=== PATIENT | male | born 1955 | race Caucasian/White ===

== ENCOUNTER 2023-08-03 21:28 | Inpatient (IN) | payer OTHER, MEDICAID ==
[~2023-08-03] VITALS: Ht 167.6 cm; Wt 79.4 kg
[2023-08-03 21:50] VITALS: BP 140/82; PULSE 81; RESP 16; TEMP 98.3; O2SAT 94
[2023-08-03] MEDS ORDERED: cefTRIAXone 1,000 MG in DEXT 5% MINI-BAG PLUS 50 ML IV ONE (22:20)
[2023-08-03] MEDS ORDERED: cefTRIAXone 1,000 MG VIAL ONE (22:33)
[2023-08-03 23:30] LABS: BASOPHILS # (AUTO) 0.1 K/uL (0.00-0.22); EOSINOPHILS # (AUTO) 0.4 K/uL (0-0.4); EOSINOPHILS % (AUTO) 2.8 % (0.0-4.0); HEMATOCRIT 33.2 % (36-52); LYMPHOCYTES # (AUTO) 0.9 K/uL (2.0-11.5); LYMPHOCYTES % (AUTO) 6.2 % (20.5-51.1); MEAN CORPUSCULAR HEMOGLOBIN 28 pg (27-31); MEAN CORPUSCULAR HGB CONC 33 g/dL (33-37); MEAN CORPUSCULAR VOLUME 84.4 fL (80-94); MONOCYTES % (AUTO) 7.3 % (1.7-9.3); NEUTROPHILS # (AUTO) 11.4 K/uL (1.8-7.7); NEUTROPHILS % (AUTO) 82.7 % (42.2-75.2); PLATELET COUNT (AUTO) 336 K/uL (140-450); RED BLOOD CELL COUNT(AUTO) 3.94 MIL/uL (4.20-6.10); WHITE BLOOD COUNT (AUTO) 13.8 K/uL (4.8-10.8)
[2023-08-03 23:58] LABS: LACTIC ACID 0.7 mmol/L (0.4-2.0)
[2023-08-04 01:04] LABS: ANION GAP 17.6 (8-16); CALCIUM 8.4 mg/dL (8.5-10.1); CREATININE 3.7 mg/dL (0.6-1.3); POTASSIUM 4.6 mmol/L (3.5-5.1)
[2023-08-04] MEDS ORDERED: ACETAMINOPHEN 325 MG TAB PO PRN (01:30)
[2023-08-04] MEDS ORDERED: MORPHINE SULFATE 2 MG/ML SYR IVP PRN (01:30)
[2023-08-04] MEDS ORDERED: guaiFENesin 20 MG/ML UDC PO ONE (01:30)
[2023-08-04] MEDS ORDERED: MAGNESIUM HYDROXIDE 2400 MG/30 ML UDC PO ONE (01:30)
[2023-08-04] MEDS ORDERED: HYDROcodone/APAP 5/325 MG 1 TAB TAB PO ONE (01:30)
[2023-08-04] MEDS ORDERED: CLONIDINE HYDROCHLORIDE 0.1 MG TAB PO PRN (01:40)
[2023-08-04] MEDS ORDERED: methylPREDNISolone SS 40 MG in WATER STERILE 1 ML IV SCH (05:00)
[2023-08-04] MEDS ORDERED: CARV12.5 PO (06:28)
[2023-08-04] MEDS ORDERED: ISOS20TA13 PO (06:28)
[2023-08-04] MEDS ORDERED: ESCI5TAB PO (06:28)
[2023-08-04] MEDS ORDERED: HYDR-734 PO (06:28)
[2023-08-04] MEDS ORDERED: FAMO-90 PO (06:28)
[2023-08-04] MEDS ORDERED: AMLO5TAB PO (06:28)
[2023-08-04] MEDS ORDERED: GABA300C PO (06:28)
[2023-08-04] MEDS ORDERED: ATOR40TA PO (06:28)
[2023-08-04] MEDS ORDERED: ALBUTEROL SULFATE/IPRATROPIU 3 ML SOL IH SCH (07:00)
[2023-08-04 07:58] LABS: FLU A ANTIGEN negative (NEGATIVE); FLU B ANTIGEN negative (NEGATIVE)
[2023-08-04 08:23] VITALS: PULSE 72; RESP 18; O2SAT 98
[2023-08-04] MEDS: AZITHROMYCIN 500 MG in DEXTROSE 5% 250 ML IV SCH (09:00)
[2023-08-04] MEDS ORDERED: AZITHROMYCIN 500 MG INJ VIAL IV ONE (09:08)
[2023-08-04] MEDS ORDERED: cefTRIAXone 1,000 MG VIAL ONE (09:08)
[2023-08-04] MEDS ORDERED: ALBUTEROL SULFATE/IPRATROPIU 3 ML SOL IH PRN (10:15)
[2023-08-04] MEDS: methylPREDNISolone SS 40 MG/ML VIAL IVP SCH ×2 (13:14→21:00)
[2023-08-04] MEDS: carvediloL 12.5 MG TAB PO SCH (21:00)
[2023-08-04] MEDS ORDERED: LORazepam 2 MG/ML VIAL IM/IVP PRN (23:30)
[2023-08-05] VITALS (10 sets, daily range): PULSE 63–65; RESP 16–19; O2SAT 95–97
[2023-08-05 02:46] LABS: BASOPHILS % (AUTO) 0.4 % (0.0-2.0); HEMATOCRIT 31.5 % (36-52); HEMOGLOBIN 10.7 g/dL (12.0-18.0); LYMPHOCYTES # (AUTO) 0.5 K/uL (2.0-11.5); LYMPHOCYTES % (AUTO) 6.7 % (20.5-51.1); MEAN CORPUSCULAR HEMOGLOBIN 29 pg (27-31); MEAN CORPUSCULAR HGB CONC 34 g/dL (33-37); MONOCYTES # (AUTO) 0.1 K/uL (0.8-1.0); MONOCYTES % (AUTO) 0.8 % (1.7-9.3); NEUTROPHILS # (AUTO) 6.4 K/uL (1.8-7.7); PLATELET COUNT (AUTO) 293 K/uL (140-450); RED BLOOD CELL COUNT(AUTO) 3.75 MIL/uL (4.20-6.10); RED CELL DISTRIBUTION WIDTH 14.3 % (11.6-13.7)
[2023-08-05 03:02] LABS: ANION GAP 20.6 (8-16); CALCIUM 9.1 mg/dL (8.5-10.1); CARBON DIOXIDE 17.6 mmol/L (21-32); CREATININE 3.9 mg/dL (0.6-1.3); POTASSIUM 5.2 mmol/L (3.5-5.1)
[2023-08-05 03:13] LABS: NEUTROPHILS % (AUTO) 92.1 % (42.2-75.2)
[2023-08-05] MEDS: methylPREDNISolone SS 40 MG/ML VIAL IVP SCH ×3 (05:18→22:08)
[2023-08-05] MEDS ORDERED: VANCOMYCIN PER PHARMACY MC PRN (06:10)
[2023-08-05] MEDS ORDERED: VANCOMYCIN 1GM/DEXT 5% PREMIX 200 ML IV ONE (07:00)
[2023-08-05 07:19] LABS: BASOPHILS % (AUTO) 0.2 % (0.0-2.0); HEMATOCRIT 28.9 % (36-52); HEMOGLOBIN 9.9 g/dL (12.0-18.0); LYMPHOCYTES # (AUTO) 0.6 K/uL (2.0-11.5); LYMPHOCYTES % (AUTO) 9.6 % (20.5-51.1); MEAN CORPUSCULAR HEMOGLOBIN 29 pg (27-31); MEAN CORPUSCULAR HGB CONC 34 g/dL (33-37); MEAN CORPUSCULAR VOLUME 83.6 fL (80-94); MONOCYTES # (AUTO) 0.1 K/uL (0.8-1.0); MONOCYTES % (AUTO) 1.6 % (1.7-9.3); NEUTROPHILS # (AUTO) 5.8 K/uL (1.8-7.7); NEUTROPHILS % (AUTO) 88.6 % (42.2-75.2); PLATELET COUNT (AUTO) 288 K/uL (140-450); RED BLOOD CELL COUNT(AUTO) 3.45 MIL/uL (4.20-6.10); RED CELL DISTRIBUTION WIDTH 14.5 % (11.6-13.7); WHITE BLOOD COUNT (AUTO) 6.6 K/uL (4.8-10.8)
[2023-08-05 07:26] LABS: PHOSPHORUS 4.8 mg/dL (2.5-4.9)
[2023-08-05 07:45] LABS: ALBUMIN 2.6 g/dL (3.4-5.0); ANION GAP 19.1 (8-16); CALCIUM 9.1 mg/dL (8.5-10.1); CARBON DIOXIDE 18.1 mmol/L (21-32); CREATININE 3.9 mg/dL (0.6-1.3); POTASSIUM 5.2 mmol/L (3.5-5.1); TOTAL BILIRUBIN 0.5 mg/dL (0.0-1.0); TOTAL PROTEIN, SERUM 6.7 g/dL (6.4-8.2)
[2023-08-05] MEDS ORDERED: VANCOMYCIN 1,000 MG VIAL ONE (08:23)
[2023-08-05] MEDS: AZITHROMYCIN 500 MG in DEXTROSE 5% 250 ML IV SCH (09:00)
[2023-08-05] MEDS: ISOSORBIDE DINITRATE 20 MG TAB PO SCH (09:00)
[2023-08-05] MEDS ORDERED: CLONIDINE HYDROCHLORIDE 0.1 MG TAB PO PRN (09:03)
[2023-08-05] MEDS: GABAPENTIN 300 MG CAP PO SCH (09:51)
[2023-08-05] MEDS: ATORVASTATIN 20 MG TAB PO SCH (09:51)
[2023-08-05] MEDS: amLODIPine 5 MG TAB PO SCH (09:53)
[2023-08-05] MEDS: ESCITALOPRAM 20 MG TAB PO SCH (09:53)
[2023-08-05] MEDS: carvediloL 12.5 MG TAB PO SCH ×2 (09:54→22:06)
[2023-08-05] MEDS: FAMOTIDINE 20 MG TAB PO SCH (09:54)
[2023-08-05] MEDS ORDERED: cefTRIAXone 1,000 MG VIAL ONE (10:06)
[2023-08-05] MEDS ORDERED: AZITHROMYCIN 500 MG INJ VIAL IV ONE (10:06)
[2023-08-05] MEDS: SODIUM BICARBONATE 8.4% 50 MEQ in NACL 0.45% 1,000 ML IV SCH (16:15)
[2023-08-05] MEDS ORDERED: SODIUM BICARBONATE 8.4% PFS 50 MEQ/50 ML SYR IVP ONE (18:21)
[2023-08-06] VITALS (11 sets, daily range): BP systolic 138–167; BP diastolic 58–80; PULSE 49–88; RESP 18–20; TEMP 97.1–98.7; O2SAT 96–98
[2023-08-06] MEDS: methylPREDNISolone SS 40 MG/ML VIAL IVP SCH ×3 (04:43→20:42)
[2023-08-06] MEDS: SODIUM BICARBONATE 8.4% 50 MEQ in NACL 0.45% 1,000 ML IV SCH ×2 (06:15→18:33)
[2023-08-06 07:32] LABS: ANION GAP 17.6 (8-16); CALCIUM 9.1 mg/dL (8.5-10.1); CARBON DIOXIDE 19.9 mmol/L (21-32); CREATININE 3.7 mg/dL (0.6-1.3); POTASSIUM 4.5 mmol/L (3.5-5.1)
[2023-08-06 07:42] LABS: BASOPHILS % (AUTO) 0.1 % (0.0-2.0); HEMATOCRIT 32.6 % (36-52); HEMOGLOBIN 11.1 g/dL (12.0-18.0); LYMPHOCYTES # (AUTO) 0.7 K/uL (2.0-11.5); LYMPHOCYTES % (AUTO) 5.9 % (20.5-51.1); MEAN CORPUSCULAR HEMOGLOBIN 29 pg (27-31); MEAN CORPUSCULAR HGB CONC 34 g/dL (33-37); MEAN CORPUSCULAR VOLUME 83.7 fL (80-94); MONOCYTES # (AUTO) 0.2 K/uL (0.8-1.0); MONOCYTES % (AUTO) 1.9 % (1.7-9.3); NEUTROPHILS % (AUTO) 92.1 % (42.2-75.2); PLATELET COUNT (AUTO) 332 K/uL (140-450); RED BLOOD CELL COUNT(AUTO) 3.89 MIL/uL (4.20-6.10); RED CELL DISTRIBUTION WIDTH 14.4 % (11.6-13.7)
[2023-08-06] MEDS: ATORVASTATIN 20 MG TAB PO SCH ×3 (08:50→12:39)
[2023-08-06] MEDS: FAMOTIDINE 20 MG TAB PO SCH ×3 (08:50→12:38)
[2023-08-06] MEDS: GABAPENTIN 300 MG CAP PO SCH ×3 (08:50→12:40)
[2023-08-06] MEDS: carvediloL 12.5 MG TAB PO SCH ×4 (08:50→20:41)
[2023-08-06] MEDS: ESCITALOPRAM 20 MG TAB PO SCH ×3 (08:51→12:37)
[2023-08-06] MEDS: ISOSORBIDE DINITRATE 20 MG TAB PO SCH ×3 (08:51→12:37)
[2023-08-06] MEDS: amLODIPine 5 MG TAB PO SCH ×3 (08:51→12:39)
[2023-08-06] MEDS: AZITHROMYCIN 500 MG in DEXTROSE 5% 250 ML IV SCH (09:11)
[2023-08-06] MEDS ORDERED: VANCOMYCIN 750 MG in NACL 0.9% 250 ML IV SCH (16:00)
[2023-08-06 21:38] LABS: APPEARANCE,URINE CLEAR (CLEAR); BILIRUBIN,URINE NEGATIVE (NEGATIVE); BLOOD, URINE TRACE-I (NEGATIVE); COLOR,URINE YELLOW (YELLOW); LEUKOCYTE ESTERASE ,URINE NEGATIVE (NEGATIVE); NITRITE, URINE NEGATIVE (NEGATIVE); PROTEIN,URINE 3+ (NEGATIVE); UGLUCOSE 2+ (NEGATIVE); UROBILINOGEN,URINE 0.2 EU/dL (0.2 - 1)
[2023-08-06 21:51] LABS: BACTERIA,URINE FEW /HPF (None Seen); RBC,URINE 0-5 /HPF (0-5); SQUAMOUS EPITHELIAL CELL,UR 0-3 (FEW) /LPF (0-3 (FEW)); WBC,URINE 0-5 /HPF (0-5)
[2023-08-07 04:00] VITALS: BP 147/57; PULSE 68; RESP 18; TEMP 97.4; O2SAT 100
[2023-08-07 06:29] LABS: HEMATOCRIT 27.8 % (36-52); HEMOGLOBIN 9.6 g/dL (12.0-18.0); LYMPHOCYTES # (AUTO) 0.4 K/uL (2.0-11.5); LYMPHOCYTES % (AUTO) 3.6 % (20.5-51.1); MEAN CORPUSCULAR HEMOGLOBIN 29 pg (27-31); MEAN CORPUSCULAR HGB CONC 35 g/dL (33-37); MEAN CORPUSCULAR VOLUME 83.3 fL (80-94); MONOCYTES # (AUTO) 0.2 K/uL (0.8-1.0); MONOCYTES % (AUTO) 2.3 % (1.7-9.3); NEUTROPHILS # (AUTO) 10.2 K/uL (1.8-7.7); NEUTROPHILS % (AUTO) 94.1 % (42.2-75.2); PLATELET COUNT (AUTO) 285 K/uL (140-450); RED BLOOD CELL COUNT(AUTO) 3.34 MIL/uL (4.20-6.10); RED CELL DISTRIBUTION WIDTH 14.2 % (11.6-13.7); WHITE BLOOD COUNT (AUTO) 10.9 K/uL (4.8-10.8)
[2023-08-07 06:49] LABS: ANION GAP 16.6 (8-16); CALCIUM 8.2 mg/dL (8.5-10.1); CARBON DIOXIDE 20.3 mmol/L (21-32); CREATININE 3.5 mg/dL (0.6-1.3); POTASSIUM 4.9 mmol/L (3.5-5.1)
[2023-08-07 08:00] VITALS: BP 155/65; PULSE 62; RESP 18; TEMP 97.4; O2SAT 97
[2023-08-07 08:05] VITALS: O2SAT 95
[2023-08-07] MEDS ORDERED: SODIUM ZIRCONIUM CYCLOSILICATE 10 GM POWD.PACK PO SCH (09:00)
[2023-08-07] MEDS ORDERED: levoFLOXacin 750 MG TAB PO SCH (09:00)
[2023-08-07] MEDS ORDERED: predniSONE 20 MG TAB PO SCH (09:00)
[2023-08-07] MEDS: FAMOTIDINE 20 MG TAB PO SCH (09:08)
[2023-08-07] MEDS: GABAPENTIN 300 MG CAP PO SCH (09:09)
[2023-08-07] MEDS: ISOSORBIDE DINITRATE 20 MG TAB PO SCH (09:09)
[2023-08-07] MEDS: amLODIPine 5 MG TAB PO SCH (09:09)
[2023-08-07] MEDS: carvediloL 12.5 MG TAB PO SCH (09:09)
[2023-08-07] MEDS: ATORVASTATIN 20 MG TAB PO SCH (09:09)
[2023-08-07] MEDS: ESCITALOPRAM 20 MG TAB PO SCH (09:10)
[2023-08-07] MEDS ORDERED: AMOX-999 PO (10:21)
[2023-08-07] MEDS ORDERED: PRED20TA5 PO (10:22)
[2023-08-07 11:24] VITALS: BP 155/65; PULSE 62; RESP 18; TEMP 97.4
[2023-08-07 15:51] LABS: CHLORIDE,URINE RANDOM 43 mmol/L (110-250); CREATININE,URINE RANDOM 72 mg/dL (30-125); URINE SODIUM, RANDOM 35 mmol/l (40-220)
[2023-08-09] MEDS ORDERED: levoFLOXacin 500 MG TAB PO SCH (09:00)
== END 2023-08-07 13:15 | disposition home health service (06) | DRG 177 ==
LOC: MED 21:28 → MTU 08-04 01:29
PROVIDERS: ADMIT Internal Medicine; ATTEND Internal Medicine
DX: J15.69 Pneumonia due to other Gram-negative bacteria (principal); J96.01 Acute respiratory failure with hypoxia; N17.0 Acute kidney failure with tubular necrosis; J44.0 Chronic obstructive pulmonary disease with (acute) lower respiratory infection; Z20.822 Contact with and (suspected) exposure to COVID-19; D63.8 Anemia in other chronic diseases classified elsewhere; I12.9 Hypertensive chronic kidney disease with stage 1 through stage 4 chronic kidney disease, or unspecified chronic kidney disease; Z86.73 Personal history of transient ischemic attack (TIA), and cerebral infarction without residual deficits; N18.31 Chronic kidney disease, stage 3a
CPT/HCPCS: 36415; 70450; 71045; 76770; 80048; 80053; 80202; 81001; 82436; 82570; 83036; 83605; 83735; 83880; 84100; 84300; 84484; 85025; 87040; 87081; 93005; 94640; 96365; 97116; 97163-GP; 99285; J0456; J0696; J2060; J2270; J2920; J3370; J3490; J7030; J7060; J7512; Q0092